=== PATIENT | female | born 1985 | race Caucasian/White ===

== ENCOUNTER 2018-01-12 19:55 | Emergency (ER) | payer SELFPAY ==
[~2018-01-12] VITALS: Ht 162.6 cm; Wt 45.8 kg
[~2018-01-12 19:55] MED LIST: BACTRIM,SEPT1 TABLET PO; CLINDAMYCI75 MG/5 ML PO; CLINDAMYCIN HC300 MG PO; FLEXERIL10 MG PO; KEFLEX500 MG PO; LIDOCAINE20 MG/1 M5 PO; MOTRIN100 MG/5 M PO; MOTRIN400 MG PO; MOTRIN600 MG PO; MOTRIN800 MG PO; NOHOMEMEDS; NORCO 5/3251 TABLET PO; PERCOCET 5/31 TABLET PO; PYRIDIUM200 MG PO; TORADOL10 MG PO; TRAMADOL HCL50 MG PO; ULTRAM50 MG PO; ZITHROMAX Z-PA250 MG PO; ZOFRAN4 MG PO
[2018-01-12 21:31] VITALS: BP 146/128
== END 2018-01-12 21:24 | disposition left against medical advice (07) ==
LOC: EME → EDBD 19:55 → EME 19:55 → EDSEX 19:55 → EME 21:24
DX: S00.531A Contusion of lip, initial encounter (principal); Y04.2XXA Assault by strike against or bumped into by another person, initial encounter; J34.2 Deviated nasal septum; J45.909 Unspecified asthma, uncomplicated; F31.9 Bipolar disorder, unspecified; F17.200 Nicotine dependence, unspecified, uncomplicated; Z88.0 Allergy status to penicillin
CPT/HCPCS: 70450; 70486; 72125; 99281; 99284